=== PATIENT | female | born 1970 | race Caucasian/White ===

== ENCOUNTER 2023-10-11 21:31 | Emergency (ER) | payer OTHER, SELFPAY ==
[2023-10-11 21:38] VITALS: BP 125/64
[2023-10-11] MEDS: TORADOL 60 MG IM (22:51)
--- NOTE | 2023-10-11 22:56 | ED.GENMED ---
History of Present Illness
General
Chief Complaint: Musculo-Skeletal Complaint
Source: patient, spouse and previous radiology exam (CT abdomen pelvis in October 2022 showing left ovarian cyst. 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
tendinosis bilateral lateral hips.)
Exam Limitations: none
Time Seen by Provider: 10/11/23 22:31
Nursing documentation reviewed up to this point in time: agreed with
Travel History
Have you had any contact with someone who has COVID-19?: No
Do you have any symptoms of coronavirus? Fever > 100 degrees, chills, cough, shortness of breath, sore throat, loss of taste or smell, muscle aches, or headache?: No
History of Present Illness
History of Present Illness:
This is a 52-year-old woman with history of migraine headaches, osteoarthritis, who complains of left buttock pain that began last night, early a.m. that has gotten progressively worse throughout the day today with radiation of pain down her left
posterior thigh to her knee. No insightful injury but she admits to sitting in the car for 3 hours yesterday during a drive home. No pain upon returning home but she awoke around 2:00 in the morning with left mid to inferior buttock pain that has
worsened throughout the day. She has been taking ibuprofen 600 mg with mild relief of pain, last dose at 3 PM today.
She denies low back pain, no abdominal pain, no weakness but does admit to occasional brief tingling of her left foot.
No difficulty moving her bowels or bladder. No fever.
Pain is much worse with attempted movement especially with getting up from a seated position as well as with ambulation. When she is up and moving about, pain improves temporarily.
No history of similar episodes in the past.
Her only daily medication is vitamin D supplement.
She requests to avoid narcotic pain medication.
Past History
Past History
ED Past Medical History: Other (Migraine headaches, ovarian cyst, osteoarthritis); Negative HTN, Hypercholesterolemia, NIDDM or [place]
ED Past Surgical History: None
Social History
Tobacco: Smoker
Alcohol: None
Personal:
Living: with family
Employment: Employed
Family History
Family History: Other (Noncontributory)
Phy Exam
Physical Exam
Physical Exam:
GENERAL: 52-year-old woman appears her stated age. Lying supine on stretcher, appears in mild distress related to pain. Resistant to move. is accompanying. Vital signs reviewed/within normal limits.
EYE: anicteric
NECK: Supple, nontender, no meningismus, no significant adenopathy.
ENT: oral mucosa is moist. No rhinorrhea.
CARDIAC: Regular rate and rhythm. no murmur.
LUNGS: Clear breath sounds bilaterally, no acute respiratory distress, no wheezes/rales/rhonchi
ABDOMEN: Soft, nondistended, without focal tenderness, no r/g, no cvat. normoactive BS.
BACK: No midline vertebral bony tenderness. There is moderate tenderness left SI joint. Palpation exactly reproduces patient's pain complaint. There is no soft tissue swelling.
NEUROLOGICAL: Alert and oriented x3, no focal neuro deficits. Gross sensation is intact. Motor strength 5/5 bilaterally.
SKIN: Warm and dry, normal color, skin intact. No rash.
MUSCULOSKELETAL: No C/C/E. peripheral pulses are full and equal b/l. Moderate tenderness left SI joint. Markedly limited left hip range of motion related to pain and marked patient resistance to range of motion. There is no tenderness to the
anterior nor lateral hip. No tenderness to the thigh nor knee nor lower leg.
PSYCH: Normal and appropriate interaction.
Course
Orders/Labs/Results
Orders:
Orders
10/11/23 22:44
Ketorolac [Toradol] 60 mg IM NOW STA
Vital Signs
Initial and Last Documented VS:
Initial Vital Signs
Temp Pulse Resp BP Pulse Ox
98.2 F 83 18 125/64 98
10/11/23 21:38 10/11/23 21:38 10/11/23 21:38 10/11/23 21:38 10/11/23 21:38
Last Documented Vital Signs
Temp Pulse Resp BP Pulse Ox
98.2 F 66 18 103/69 98
10/11/23 21:38 10/11/23 23:55 10/11/23 21:38 10/11/23 23:55 10/11/23 23:55
MDM/Problems Addressed
Differential Diagnosis Includes:
Patient presents with acute atraumatic left posterior hip/buttock pain with radiation of the pain down her left lower extremity.
Concern for acute sciatica, sacroiliitis, piriformis muscle strain.
No focal neurodeficits.
Afebrile, no skin changes nor soft tissue swelling, nothing to suggest focal infectious process.
Will medicate with IM Toradol. Patient declines narcotic pain medication.
With no reported injury, previous imaging 1 year ago showing mild DJD SI joints, mild DJD bilateral hips and mild to moderate degenerative disc disease of lumbar spine. At this point no indication for repeat imaging.
*Pulse Oximetry
Patient hypoxic: no
*Critical Care Note
Total Time (30-74mins, 75-104mins- exclusive of procedures): Not Applicable
Update Note
Update Note:
10/11/2023 2358 PM
Patient feeling moderately improved after IM Toradol.
Sleeping when reevaluated.
Able to get up and ambulate with mildly antalgic gait.
She continues to have no focal neurodeficits.
Will discharge to home with prescription for diclofenac to be taken twice daily as needed for pain.
Continue local ice/heat, rest.
Will discharge with crutches for partial week bearing left lower extremity.
Prompt follow-up with PCP for recheck.
ED Attending Note
-
Portions of this chart may have been created with voice recognition software.� Occasional wrong word or��sound alike� substitutions may have occurred due to the inherent limitations of voice recognition software.
Discharge Plan
Departure
Patient Disposition: Home (Routine Discharge)
Date of Disposition: 10/12/23
Time of Disposition: 00:00
Patient with high blood pressure during this ER visit?: No
Condition: Good
Discharge Problem:
acute left sacroiliitis, Piriformis syndrome of left side
Instructions: Sciatica (DC), How to Use Crutches, Sacroiliac Joint Pain (DC)
Prescriptions:
New
cyclobenzaprine 10 mg tablet
10 mg PO TIDPRN PRN (Reason: muscle spasm) Qty: 20 0RF
diclofenac sodium 75 mg tablet,delayed release (DR/EC)
75 mg PO BID PRN (Reason: pain) Qty: 30 0RF
Referrals:
Demario Villela MD [Family Provider] - Call in 1-3 days for appt
Interventions
Interventions:
*Risk Screen - Suicide Last Done: 10/11/23 21:38
*General Assessment Last Done: 10/11/23 21:38
*ED COVID-19 Vaccine History Last Done: 10/11/23 21:41
ED-Musculoskeletal Assessment Last Done: 10/11/23 22:18
Discharge Date and Time
Print Language: UPPER SORBIAN
[2023-10-11 23:55] VITALS: BP 103/69
[2023-10-12 00:12] VITALS: BP 103/69
== END 2023-10-12 00:13 | disposition home or self-care (01) ==
LOC: EMR 21:31
PROVIDERS: EMERGENCY PHYSICIAN Emergency Medicine; FAMILY PHYSICIAN Internal Medicine
DX: M46.1 Sacroiliitis, not elsewhere classified (principal); G57.02 Lesion of sciatic nerve, left lower limb; F17.200 Nicotine dependence, unspecified, uncomplicated
CPT/HCPCS: 99284; 96372

== ENCOUNTER 2024-09-25 09:58 | Emergency (ER) | payer OTHER, SELFPAY ==
[2024-09-25 10:05] VITALS: BP 148/81
[2024-09-25 10:23] VITALS: BMI 34.0
[2024-09-25 10:25] VITALS: BP 118/65
[2024-09-25 10:37] LABS: % Basophils 0.5 % (0-2); % Eosinophils 0.7 % (0-6); % Immature Granulocytes 0.3 % (0-0.5); % Lymphocytes 16.2 % (20.5-51.1); % Monocytes 5.1 % (1.7-9.3); % Neutrophils 77.2 % (42.2-75.2); Absolute Basophils 0.1 10^3/uL (0-0.2); Absolute Eosinophils 0.1 10^3/uL (0-0.7); Absolute Lymphocytes 1.8 10^3/uL (1.2-3.4); Absolute Monocytes 0.6 10^3/uL (0.1-0.6); Absolute Neutrophils 8.5 10^3/uL (1.4-6.5); Hematocrit 44.9 % (37.0-47.0); Hemoglobin 15.8 g/dL (12.0-16.0); Mean Corp Hgb Conc. 35.2 g/dL (33.0-37.0); Mean Corpuscular Hgb 30.3 pg (27.0-31.0); Mean Corpuscular Volume 86.2 fL (81.0-99.0); Mean Platelet Volume 9.2 fL (7.4-10.4); Nucleated Red Blood Cells % 0 %; Platelet Count 226 10^3/uL (130-400); Red Blood Cell Count 5.21 10^6/uL (4.20-5.40); Red Cell Dist. Width 12.9 % (11.5-14.5)
[2024-09-25 10:55] LABS: ALT (SGPT) 23 U/L (0-35); AST (SGOT) 19 U/L (14-36); Albumin 4.5 g/dl (3.5-5.0); Alkaline Phosphatase 76 U/L (38-126); Blood Urea Nitrogen 8 mg/dl (7-17); Calcium 9.4 mg/dl (8.4-10.2); Carbon Dioxide 22 mmol/L (22-30); Chloride 105 mmol/L (98-107); Estimated Creatinine Clearance 119 ml/min; Glucose 117 mg/dl (70-99); Potassium 4.1 mmol/L (3.5-5.1); Sodium 137 mmol/L (135-145); Total Bilirubin 0.8 mg/dl (0.2-1.3); Total Protein 6.9 g/dl (6.3-8.2); eGFR > 60.00
[2024-09-25 11:01] VITALS: BP 128/83
[2024-09-25 11:05] LABS: Urine Albumin Negative (Neg - Trace); Urine Bilirubin Negative (Negative); Urine Character Clear (Clear); Urine Color Yellow; Urine Glucose Negative (Negative); Urine Ketone Negative (Negative); Urine Leukocyte Negative (Negative); Urine Nitrite Negative (Negative); Urine Occult Blood 1+ (Negative); Urine Specific Gravity 1.015 (<1.030); Urine Urobilinogen Negative (Neg - 1+)
[2024-09-25] MEDS: ZOFRAN ODT (ORALLY DISINTEGRATING) 4 MG PO (11:18)
[2024-09-25] MEDS: TYLENOL 650 MG PO (11:18)
[2024-09-25] MEDS: MOTRIN 600 MG PO (11:18)
[2024-09-25 11:21] LABS: Urine Bacteria Few (Negative); Urine Squamous Cell 26-30 /LPF (Few)
[2024-09-25 11:22] LABS: Urine Red Blood Cell 0-2 /HPF (0-2); Urine White Cell 0-2 /HPF (0-5)
--- NOTE | 2024-09-25 11:31 | ED.GENMED ---
History of Present Illness
General
Chief Complaint: Flank Pain
Source: patient and previous radiology exam
Exam Limitations: none
Time Seen by Provider: 09/25/24 10:16
Nursing documentation reviewed up to this point in time: agreed with
History of Present Illness
History of Present Illness:
53-year-old female few days of fever cough congestion some chills, day or 2 of left flank and left lower abdominal pain she has had cysts on her ovaries before no history of diverticulitis no history of kidney stones
Past History
Past History
ED Past Medical History: Other (Migraine headaches, ovarian cyst, osteoarthritis); Negative HTN, Hypercholesterolemia, NIDDM or [place]
ED Past Surgical History: None
Social History
Tobacco: Smoker
Alcohol: None
Drug: None
Personal:
Living: with family
Employment: Employed
Family History
Family History: Other (Noncontributory)
Review of Systems
Review of Systems
All Other Systems: Not applicable
Constitutional: Reports fever, fatigue and chills
Respiratory: Reports cough and trouble breathing
Cardiac: Reports no symptoms
ABD/GI: Reports abdominal pain and nausea
: Reports flank pain; Denies frequency, difficulty voiding or bleeding
Phy Exam
Physical Exam
Physical Exam:
Physical Exam
General: 53-year-old female coughing nontoxic feels
Heart: Regular
Lungs: no acute respiratory distress faint crackle at the
Abdomen: Mild tenderness in the left lower abdomen and left lower
Neuro: alert and oriented. no focal neurological deficits
Skin: no rash
Psychiatric: well kept. interactive and cooperative
Extremities: no edema. no calf tenderness.
Course
Orders/Labs/Results
Orders:
Orders
09/25/24 10:30
Complete Blood Count/With Diff Urgent
Comprehensive Metabolic Panel Urgent
09/25/24 10:50
Urinalysis Reflex To Culture Urgent
Date Specimen was Collected: 09/25/24
Time Specimen was Collected: 10:29
Urine Microscopic Reflex Cult Urgent
09/25/24 11:04
Acetaminophen [Tylenol] 650 mg PO NOW STA
Ibuprofen [Motrin] 600 mg PO NOW STA
Ondansetron Orally Disint [Zofran Odt (Orally Disintegrating)] 4 mg PO NOW STA
CR Chest - 2 Views Urgent
Comment:
Reason For Exam: cough
09/25/24 11:05
Renal & Bladder US [US Renal With Bladder] Urgent
Comment:
Reason For Exam: pain
US Pelvis W Transvag Combined Urgent
Reason For Exam: pain
09/25/24 11:14
COVID-19 Antigen Urgent
Source: Nasal Swab
Influenza A+B Rapid Molecular Urgent
ROCÍO Source: Nasal Swab
Specimen Description:
Abnormal Lab Results
09/25/24 09/25/24
10:30 10:50
WBC 11.0 H 10^3/uL
(4.8-10.8)
Absolute Neuts (auto) 8.5 H 10^3/uL
(1.4-6.5)
Neutrophils % 77.2 H %
(42.2-75.2)
Lymphocytes % 16.2 L %
(20.5-51.1)
Creatinine 0.5 L mg/dL
(0.6-1.0)
Glucose 117 H mg/dl
(70-99)
Ur Occult Blood Reflex 1+ A
(Negative)
Urine Bacteria (Reflex) Few A
(Negative)
09/25/24 10:30
09/25/24 10:30
Vital Signs
Initial and Last Documented VS:
Initial Vital Signs
Temp Pulse Resp BP Pulse Ox
97.5 F 83 16 148/81 98
03/12/25 10:05 09/25/24 10:05 09/25/24 10:05 09/25/24 10:05 09/25/24 10:05
Last Documented Vital Signs
Temp Pulse Resp BP Pulse Ox
97.5 F 83 16 118/61 94
09/25/24 10:05 09/25/24 10:05 09/25/24 10:05 09/25/24 13:00 09/25/24 13:00
MDM/Problems Addressed
Differential Diagnosis Includes:
Viral syndrome pneumonia influenza COVID UTI ovarian cyst
MDM/Problems Addressed:
Flank pain fever chills cough
Chronic conditions affecting care:
Ovarian cyst
Acute Exacerbation and/or Progression of Chronic Illness:
Ovarian cyst
*Critical Care Note
Total Time (30-74mins, 75-104mins- exclusive of procedures): Not Applicable
ED Attending Note
-
Portions of this chart may have been created with voice recognition software.� Occasional wrong word or��sound alike� substitutions may have occurred due to the inherent limitations of voice recognition software.
Discharge Plan
Departure
Patient Disposition: Home (Routine Discharge)
Date of Disposition: 09/25/24
Time of Disposition: 15:15
Patient with high blood pressure during this ER visit?: No
Condition: Good
Covid-19: Negative COVID-19
Discharge Problem:
URI (upper respiratory infection)
Instructions: Flank Pain (DC), Flank Pain ED
Prescriptions:
New
ketorolac 10 mg tablet
10 mg PO Q8H Qty: 15 0RF
ondansetron 4 mg tablet,disintegrating
4 mg PO Q8H PRN (Reason: nausea and vomiting) Qty: 20 0RF
No Action
cyclobenzaprine 10 mg tablet
10 mg PO TIDPRN PRN (Reason: muscle spasm) Qty: 20 0RF
diclofenac sodium 75 mg tablet,delayed release (DR/EC)
75 mg PO BID PRN (Reason: pain) Qty: 30 0RF
Referrals:
NONE,* [Family Provider] -
Interventions
Interventions:
*Risk Screen - Suicide Last Done: 09/25/24 10:05
*General Assessment Last Done: 09/25/24 10:23
*Neglect/Abuse Screening Last Done: 09/25/24 10:05
*ED- Fall Risk Assessment Last Done: 09/25/24 10:23
*ED COVID-19 Vaccine History Last Done: 09/25/24 10:23
OQ-Lohiyd-Ohghmglouj Assessment Last Done: 09/25/24 10:23
ED-Female Genitourinary Assessment Last Done: 09/25/24 10:23
Discharge Date and Time
Print Language: KOREAN
[2024-09-25 11:54] LABS: COVID-19 Antigen Negative (Negative)
[2024-09-25 12:00] VITALS: BP 109/59
[2024-09-25 13:00] VITALS: BP 118/61
[2024-09-25 15:35] VITALS: BP 128/72
== END 2024-09-25 17:14 | disposition home or self-care (01) ==
LOC: EMR 09:58
PROVIDERS: EMERGENCY PHYSICIAN Emergency Medicine
DX: J06.9 Acute upper respiratory infection, unspecified (principal); R10.32 Left lower quadrant pain; F17.200 Nicotine dependence, unspecified, uncomplicated; Z11.52 Encounter for screening for COVID-19
CPT/HCPCS: 99284; 71046; 76770; 76830; 76856; 80053; 81003; 81015; 85025; 87502; 87811

== ENCOUNTER 2025-02-03 16:48 | Emergency (ER) | payer OTHER, SELFPAY ==
[2025-02-03 17:02] VITALS: BP 133/75
[2025-02-03 17:37] VITALS: BMI 30.7
--- NOTE | 2025-02-03 18:02 | ED.GENMED ---
History of Present Illness
General
Chief Complaint: Back Pain
Source: patient
Exam Limitations: none
Time Seen by Provider: 02/03/25 17:34
Nursing documentation reviewed up to this point in time: agreed with
History of Present Illness
History of Present Illness:
Patient is a 54-year-old female who present the ER complaining of right sided back pain which radiates down her right leg. This started on Monday 3 days ago. Patient reports this does feel like the sciatica she has had previously. She denies any
recent injury or trauma. Denies any bowel or bladder incontinence denies any numbness tingling weakness to legs. Denies any saddle paresthesia.
Past History
Past History
ED Past Medical History: Other (Migraine headaches, ovarian cyst, osteoarthritis); Negative HTN, Hypercholesterolemia, NIDDM or [place]
ED Past Surgical History: None
Social History
Tobacco: Smoker
Alcohol: None
Drug: None
Personal:
Living: with family
Employment: Employed
Family History
Family History: Other (Noncontributory)
Phy Exam
General Physical Exam
General Presentation: no apparent distress
General age: appears stated age
General Skin: warm and dry
General Habitus: normal
General Mental: alert
General Hydration: appears well hydrated
Neurological Exam
Neurological Exam: alert, oriented x3 and other (Normal sensation distal extremities bilaterally normal dorsiflexion plantarflexion)
Musculoskeletal Exam
Musculoskeletal Exam: full ROM
Psychiatric Exam
Psychiatric Exam: normal mood/affect and agitated
Course
Orders/Labs/Results
Orders:
Orders
02/03/25 18:14
Ketorolac [Toradol] 30 mg IV NOW STA
02/03/25 18:21
Ketorolac [Toradol] 30 mg IM NOW STA
Vital Signs
Initial and Last Documented VS:
Initial Vital Signs
Temp Pulse Resp BP Pulse Ox
98.9 F 88 18 133/75 95
02/03/25 17:02 02/03/25 17:02 02/03/25 17:02 02/03/25 17:02 02/03/25 17:02
Last Documented Vital Signs
Temp Pulse Resp BP Pulse Ox
98.9 F 88 18 133/75 95
02/03/25 17:02 02/03/25 17:02 02/03/25 17:02 02/03/25 17:02 02/03/25 18:04
MDM/Problems Addressed
Differential Diagnosis Includes:
not limited to: low back pain, sciatica
MDM/Problems Addressed:
Symptoms are consistent with low back pain, sciatica. Patient reports she had sciatica in the past and this does present similar. She has been taking ibuprofen 600 mg but ran out. She reports when she was here in the past she had an injection
which did not help her. Did review prior records from September 2023 during ER visit. Patient was also thought to have sciatica at that time and did receive Toradol and reported improvement. Will give a dose of Toradol now and DC on steroids with
close outpatient follow-up family doctor. No neurological deficit
*Pulse Oximetry
SaO2: 95
Oxygen Mode of Delivery: Room air
Patient hypoxic: no
*Critical Care Note
Total Time (30-74mins, 75-104mins- exclusive of procedures): Not Applicable
ED Attending Note
-
Portions of this chart may have been created with voice recognition software.� Occasional wrong word or��sound alike� substitutions may have occurred due to the inherent limitations of voice recognition software.
Discharge Plan
Departure
Patient Disposition: Home (Routine Discharge)
Date of Disposition: 02/03/25
Time of Disposition: 18:30
Patient with high blood pressure during this ER visit?: Yes
Condition: Fair
Covid-19: Not Applicable
Discharge Problem:
Sciatica, Low back pain
Instructions: Low Back Pain (DC), Sciatica (DC)
Prescriptions:
New
prednisone 10 mg Tablet
See Rx Instructions .ROUTE .COMPLEX Qty: 30 0RF
Rx Instructions:
Take By Mouth:
40 mg daily x3 days, 30 mg daily x3 days,
20 mg daily x3 days, 10 mg daily x3 days.
cyclobenzaprine 10 mg tablet
10 mg PO TID PRN (Reason: muscle spasm) Qty: 10 0RF
No Action
cyclobenzaprine 10 mg tablet
10 mg PO TIDPRN PRN (Reason: muscle spasm) Qty: 20 0RF
diclofenac sodium 75 mg tablet,delayed release (DR/EC)
75 mg PO BID PRN (Reason: pain) Qty: 30 0RF
ketorolac 10 mg tablet
10 mg PO Q8H Qty: 15 0RF
ondansetron 4 mg tablet,disintegrating
4 mg PO Q8H PRN (Reason: nausea and vomiting) Qty: 20 0RF
Referrals:
Demario Villela MD [Family Provider, Internal Medicine]
Activity Restrictions/Additional Instructions:
As discussed you were given one dose of Toradol (anti-inflammatory ) medication in the ER. A prescription for steroids was sent to your pharmacy. Please start this tomorrow. In addition you may start muscle relaxer as needed however this may
cause drowsiness, no driving or drinking alcohol taking medication.
Follow-up with your family doctor in the next 2 days for reevaluation.
return if any worsening of symptoms
Interventions
Interventions:
*Risk Screen - Suicide Last Done: 02/03/25 17:05
*General Assessment Last Done: 02/03/25 17:02
*Neglect/Abuse Screening Last Done: 02/03/25 17:37
*ED- Fall Risk Assessment Last Done: 02/03/25 17:37
*ED COVID-19 Vaccine History Last Done: 02/03/25 17:37
ED-Musculoskeletal Assessment Last Done: 02/03/25 17:38
Discharge Date and Time
Print Language: CROATIAN
[2025-02-03] MEDS: TORADOL 30 MG IM (18:26)
== END 2025-02-03 18:47 | disposition home or self-care (01) ==
LOC: EMR 16:48
PROVIDERS: EMERGENCY PHYSICIAN Emergency Medicine; FAMILY PHYSICIAN Internal Medicine
DX: M54.41 Lumbago with sciatica, right side (principal); R03.0 Elevated blood-pressure reading, without diagnosis of hypertension; G43.909 Migraine, unspecified, not intractable, without status migrainosus; M19.90 Unspecified osteoarthritis, unspecified site; F17.200 Nicotine dependence, unspecified, uncomplicated; Z88.0 Allergy status to penicillin
CPT/HCPCS: 99284; 96372